=== PATIENT | female | born 1980 | race Caucasian/White ===

== ENCOUNTER 2021-12-08 17:14 | Outpatient (CLI) | payer OTHER, SELFPAY ==
--- NOTE | ~2021-12-08 | MM_ITS ---
EXAMINATION: MM screening [facility] w remberto HISTORY: Screening mammogram TECHNIQUE: Craniocaudal and mediolateral oblique 3-D tomosynthesis images were obtained and synthetic 2-D images were generated. CAD analysis was submitted and interpreted. COMPARISON: 12/03/2018 bilateral screening mammogram BREAST PARENCHYMAL COMPOSITION: There are scattered areas of fibroglandular density. FINDINGS: There is no evidence of suspicious mass, calcification, or architectural distortion to sugg est malignancy in either breast. There has been no suspicious interval change. IMPRESSION: 1. No mammographic evidence of malignancy. 2. Recommend routine screening mammography in one year. BI-RADS Category 1: Negative Reviewed, dictated and finalized at location B.
== END 2021-12-08 17:15 | disposition home or self-care (01) ==
LOC: ANHIMG 17:15
PROVIDERS: Visit Provider Obstetrics & Gynecology
DX: Z12.31 Encounter for screening mammogram for malignant neoplasm of breast (principal)
CPT/HCPCS: 77063; 77067

== ENCOUNTER 2023-05-04 14:08 | Outpatient (CLI) | payer OTHER, SELFPAY ==
--- NOTE | ~2023-05-04 | MM_ITS ---
EXAMINATION: MM screening [facility] w remberto HISTORY: Screening TECHNIQUE: Craniocaudal and mediolateral oblique 3-D tomosynthesis images were obtained and synthetic 2-D images were generated. CAD analysis was submitted and interpreted. COMPARISON: No prior mammogram is available for comparison at this institution. BREAST PARENCHYMAL COMPOSITION: The breasts are heterogeneously dense, which may obscure small masses FINDINGS: There is no evidence of suspicious mass, calcification, or architectural distortion to sugg est malignancy in either breast. There has been no suspicious interval change. IMPRESSION: 1. No mammographic evidence of malignancy. 2. Recommend routine screening mammography in one year. BI-RADS Category 1: Negative Reviewed, dictated and finalized at location A. GE DISPOSAL ENGINEER
== END 2023-05-04 14:09 | disposition home or self-care (01) ==
LOC: ANHIMG 14:30
PROVIDERS: PCP Obstetrics & Gynecology; Visit Provider Obstetrics & Gynecology
DX: Z12.31 Encounter for screening mammogram for malignant neoplasm of breast (principal)
CPT/HCPCS: 77063; 77067

== ENCOUNTER 2024-06-03 15:02 | Outpatient (CLI) | payer OTHER, SELFPAY ==
--- NOTE | ~2024-06-03 | MM_ITS ---
EXAMINATION: MM screening [facility] BI w remberto HISTORY: Screening TECHNIQUE: Craniocaudal and mediolateral oblique 3-D tomosynthesis images were obtained and synthetic 2-D images were generated. CAD analysis was submitted and interpreted. COMPARISON: Comparison to multiple prior studies sequentially, with oldest reviewed study dated 10/22. BREAST PARENCHYMAL COMPOSITION: Not dense: There are scattered areas of fibroglandular density. FINDINGS: There is no evidence of suspicious mass, calcification, or architectural distortion to sugg est malignancy in either breast. There has been no suspicious interval change. IMPRESSION: 1. No mammographic evidence of malignancy. 2. Recommend routine screening mammography in one year. BI-RADS Category 1: Negative Reviewed, dictated and finalized at location A. S APPOINTMENT COORDINATOR
--- OUTSIDE RECORDS SUMMARY | 2024-06-05 19:28 | XMS_ITS ---
Author Organization Unknown Address [address], [place] [id number] Phone Care Team Providers Care Cad Librarian Name Role Phone vinceZeynep ASHLIE Attending Unavailable TRE HOBSON Primary Unavailable Immunization Immunization Date Status Additional Notes Code Code System COVID-19, mRNA, LNP-S, PF, 3 0 mcg/0.3 mL dose 08/12/2020 Completed 208 CVX COVID-19, mRNA, LNP-S, PF, 3 0 mcg/0.3 mL dose 07/22/2020 Completed 208 CVX Social History Type Status Start Date End Date Code Code Syst em Smoking History Never smoker (Never Smoked) 558556341 SNOMED CT Sex Female Medications Medication Start Date End Date Route Frequency Dose Code Code System Medication Instructions Home Meds Macrobid 100MG Oral Capsule 01/06/2016 03/03/2024 By mouth Twice a day 1 TABLET 213967 RxNorm 1 TABLET By mouth Twice a day x7 days. Take with food! Diflucan 150MG Oral Tablet 01/06/2016 03/03/2024 By mouth Daily 1 TABLET 450995 RxNorm 1 TABLET By mouth on the first day. Repeat 1 tablet by mouth in 3 days if symptoms persist. Macrobid 100MG Oral Capsule 03/03/2024 Unknown By Mouth Every 12 hours 1 CAPSULE 856143 RxNorm 1 CAPSULE By Mouth Every 12 hours for 5 days Diflucan 150MG Oral Tablet 03/03/2024 Unknown By Mouth x1 NOW 1 TABLET 054882 RxNorm 1 TABLET By Mouth x1 NOW at start of antibiotic Pyridium 100MG Oral Tablet 03/03/2024 Unknown By Mouth Every 8 hours 1 TABLET 0869117 RxNorm 1 TABLET By Mouth Every 8 hours as needed for up to 2 days Cipro 250MG Oral Tablet 03/04/2024 Unknown By Mouth Twice a day 1 TABLET 909829 RxNorm 1 TABLET By Mouth Twice a day X 3 DAYS Assessment You had the following problems:UTI Hospital Discharge Instructions Should you have any questions prior to discharge, please contact a member of your healthcare team. If you have left the hospital and have any questions, please contact your primary care physician. Reason For Referral No Data Found Problems Problem Start Date Resolved Date Status Code Code System UTI active 05840675 SNOMED-CT Allergies and Adverse Reactions Allergy Substance Reaction Severity Start Date Concern Status Co de Code System No Known Drug Allergies Active 078985225 SNOMED-CT No Known Allergies Mild Active 421934902 SNO MED-CT Plan of Treatment No Data Found Encounters Encounter Diagnosis Start Date Code Code Sys tem History and physical examination, pre-employment 09/02 686519750 SNOMED-CT Personal Care Team Section Performer Name Performer Role Active Date Inactive Da te
--- OUTSIDE RECORDS SUMMARY | 2024-06-05 19:29 | XMS_ITS | Encounter Summary ---
Author Organization [facility] Address [facility] [place] [address] Care Team Providers Care Wet Machine Cutter Name Role Phone Unavailable Primary Care Provider Unavailabl e Encounter Details Date Type Department Care Team (Late st Contact Info) Description 12/16/2019 Lab Requisition [facility] [address] [facility] [place] [id number] Keyonna Thornton DO [address] [facility] [address] [place] [address] Social History Tobacco Use Types Packs/Day Years Used Date Smoking Tobacco: Never Assessed Sex and Gender Information Value Date Recorded Sex Assigned at Not on file Gender Identity Not on file Sexual Orientation Not on file documented as of this encounter Plan of Treatment Not on file documented as of this encounter Procedures Procedure Name Priority Date/Time Associated Diagnosis Comments DERMATOPATHOLOGY Routine 12/16/2019 12:0 0 AM CDT documented in this encounter Results * DERMATOPATHOLOGY (12/16/2019 12:00 AM CDT) Case Report Dermatopathology Report ? Case: [id number] ? Authorizing Provider: ??Keyonna Thornton DO ?? Collected: ? 12/16/2019 12:00 AM ? Ordering Location: ? [facility] ?Received: ?12/16/2019 10:59 AM ? Pathologist: ? Ilana Wagner MD ? Specimen: ?Skin, mid abdomen ? 0 3:55 PM CDT DERMATOPATHOLOGY LABORATORY Final Diagnosis Specimen A. SKIN, mid abdomen: JUNCTIONAL MELANOCYTIC NEVUS, IRRITATED (D22.5) 0 3:55 PM CDT DERMATOPATHOLOGY LABORATORY Clinical History Nevus R/O atypia 0 3:55 PM CDT DERMATOPATHOLOGY LABORATORY Gross Description Specimen A: Received is one formalin filled container labeled with the patient's name and designated mid abdomen. The specimen consists of a shave biopsy measuring 6x4x1 mm. Jar 0. 0 3:55 PM CDT DERMATOPATHOLOGY LABORATORY Microscopic Description Specimen A. SKIN, mid abdomen: There are nests of melanocytes at the dermal-epidermal junction. There is melanin pigment in the stratum corneum. 0 3:55 PM CDT DERMATOPATHOLOGY LABORATORY Disclaimer An external and internal positive and negative controls are appropriate for the histochemical, immunohistochemical and immunofluorescence stain(s) in this case (if any), except where stated explicitly. The performance characteristics of the stain(s) cited in this report were developed and its performance characteristic determined by the Dermatopathology Laboratory at [facility], directed by Dr. New Molina. These tests need not be, and therefore are not, approved by the [place] Food and Drug Administration. The tests are used for clinical purposes. Billing Codes Specimen Charges Stain Charges 09876 1 0 3:55 PM CDT DERMATOPATHOLOGY LABORATORY Embedded Images 0 3:55 PM CDT DERMATOPATHOLOGY LABORATORY Pathology/Cytolog y TISSUE SPECIMEN FROM SKIN / Unknown 12/16/2019 12/16/2019 10:59 AM CDT Keyonna Thornton DO LAB - PATHOLOGY/C YTOLOGY ORDERABLES DERMATOPATHOLOGY LABORATORY [facility] - Department of Dermatology [facility]/[address] [phone] documented in this encounter Visit Diagnoses Not on filedocumented in this encounter
--- OUTSIDE RECORDS SUMMARY | 2024-06-05 19:29 | XMS_ITS ---
Author Organization Unknown Address [address] [place] [phone] Phone Care Team Providers Care Legal Secretary Name Role Phone ALMA DELIA Strong Attending Unavailable OTHER PHYSICIAN Primary Unavailable Results URINALYSIS NON-AUTO W/O MICR O - Collect Date/Time: 03/03/2024 18:10 [facility] ID: [id number] [address] [place] [address], [id number] LOINC: Test Value Unit Reference Range Code Code System Flag TEST NAME URINALYSIS Color YELLOW Clarity HAZY Spec Grav 1.010 NORMAL: 1.001-1.035 PH 6.0 NORMAL: 5 - 6 Leuk Est ++ NORMAL: NEGATIVE A Nitrates Positive NORMAL: NEGATIVE A Protein TRACE NORMAL: NEGATIVE A Glucose NEGATIVE NORMAL: NEGATIVE Manual Clinitest NOT APPLICABLE Ketones NEGATIVE NORMAL: NEGATIVE Urobilinogen NORMAL NORMAL: 0-1 mg/dl Bilirubin NEGATIVE NORMAL: NEGATIVE Blood TRACE NORMAL: NEGATIVE A Social History Type Status Start Date End Date Code Code Syst em Smoking History Never smoker (Never Smoked) 623169906 SNOMED CT Sex Female Vital Signs Vital Sign Value Unit [place] Value [place] Unit Date/Time Recent/Initial? Code Code System Body Mass Index 29.69 kg/m2 03/03/2024 18:44 Initial 04693 -5 LOINC Systolic Blood Pressure 110 mm[Hg] 03/03/2024 18:44 Initial 8480- 6 LOINC Diastolic Blood Pressure 74 mm[Hg] 03/03/2024 18:44 Initial 8462- 4 LOINC Body Surface Area 1.84 m2 03/03/2024 18:44 Initial 3140- 1 LOINC Height 160.020 0 cm 63.00 in 03/03/2024 18:44 Initial 8302- 2 LOINC O2 Saturation 98 % 2023 18:44 Initial 83653 -5 [facility] Pulse 65.0 /min 03/03/2024 18:44 Initial 8867- 4 [facility] Temperature 36.6 Tati 97.8 F 03/03/20 18:44 Initial 8310- 5 [facility] Weight 76.02 kg 167.60 lbs 03/03/2024 18:44 Initial 90884 -7 [facility] Medications Medication Start Date End Date Route Frequency Dose Code Code System Medication Instructions Home Meds Macrobid 100MG Oral Capsule 01/06/2016 03/03/2024 By mouth Twice a day 1 TABLET 618684 RxNorm 1 TABLET By mouth Twice a day x7 days. Take with food! Diflucan 150MG Oral Tablet 01/06/2016 03/03/2024 By mouth Daily 1 TABLET 962337 RxNorm 1 TABLET By mouth on the first day. Repeat 1 tablet by mouth in 3 days if symptoms persist. Macrobid 100MG Oral Capsule 03/03/2024 Unknown By Mouth Every 12 hours 1 CAPSULE 501524 RxNorm 1 CAPSULE By Mouth Every 12 hours for 5 days Diflucan 150MG Oral Tablet 03/03/2024 Unknown By Mouth x1 NOW 1 TABLET 162931 RxNorm 1 TABLET By Mouth x1 NOW at start of antibiotic Pyridium 100MG Oral Tablet 03/03/2024 Unknown By Mouth Every 8 hours 1 TABLET 9588161 RxNorm 1 TABLET By Mouth Every 8 hours as needed for up to 2 days Cipro 250MG Oral Tablet 03/04/2024 Unknown By Mouth Twice a day 1 TABLET 552441 RxNorm 1 TABLET By Mouth Twice a day X 3 DAYS Assessment You had the following problems:UTI Diagnostics: Urinalysis with culture and sensitivity. Assessment/Plan: 1. Acute Urinary Tract Infection - Macrobid prescribed for antimicrobial therapy, advised to take as directed to completion. - Advised supportive care including increased fluids (mostly water), voiding when the urge presents, and always wiping front to back. Also advised pre/post-coital voiding. - May also utilize OTC Tylenol/Ibuprofen as needed for pain relief. - Encouraged to monitor for fever (>100.4), worsening lower abdominal/low back pain, gross hematuria, and/or nausea/vomiting and RTC for re-evaluation if these occur. 2. Acute Dysuria -Pyridium prescribed as needed. 3. History of Vaginal Yeast Infection with Antibiotic Use -Prophylactic fluconazole x 1 dose at start of antibiotic course. -Encouraged use of probiotics. Differentials: cystitis, vaginitis, urolithiasis, pyelonephritis Follow-up: PCP or CC in 2 days if not improving, otherwise follow-up with PCP as needed. ER if any symptoms become severe. * This plan has been reviewed with the patient. Questions and concerns addressed. Patient verbalized understanding of the treatment plan and the need for follow up. This examination was transcribed using the [employer] voice recognition system without a human staffing recruiter. To expedite patient care, this report has not been adjusted for typographical, or medical, or syntax by a trained medical parasitologist. Hospital Discharge Instructions Should you have any questions prior to discharge, please contact a member of your healthcare team. If you have left the hospital and have any questions, please contact your primary care physician. Reason For Referral No Data Found Problems Problem Start Date Resolved Date Status Code Code System UTI active 01957167 SNOMED-CT Allergies and Adverse Reactions Allergy Substance Reaction Severity Start Date Concern Status Co de Code System No Known Drug Allergies Active 665968076 SNOMED-CT No Known Allergies Mild Active 961370046 SNCurvo-CT Plan of Treatment Future Order Description Future Order Date Futu re Order Loinc: CULTURE URINE 03/03/2024 LOINC: 630-4 Encounters Encounter Diagnosis Start Date Code Code Sys tem Urinary tract infectious disease 03/03/2024 29995713 SNOMED-CT Personal Care Team Section Performer Name Performer Role Active Date Inactive Da te Progress Notes [facility] 03/04/2024 10:00 Date of Service: 03/03/2024 [facility] TREV Maxwell Chief Complaint: UTI History of Present Illness: Age: 43 years The patient is a 43-year-old female presenting to [facility] today for evaluation of bladder cramping and pressure x 1 day. She has not attempted relief with OTC medications. Patient denies dysuria, frequency/urgency, fever/chills, headache, dizziness, chest pain/tightness/heaviness, change in urine color/quality/odor, hematuria, vaginal discharge/odor/irritation and/or nausea/vomiting/diarrhea. The patient confirms a history of recurrent urinary tract infections approx. 1-2 times a year. She also denies any personal history of resistant urinary tract infections requiring hospitalization or IV antibiotics. She denies any concern for STDs today. Tobacco use: denies Marijuana use: denies Allergy Table Allergen Type Reaction No Known Food Allergies Food No Known Environmental Allergies Environment No Known Drug Allergies Medication Vital Signs: This Visit HtWt Date/Time BP (mm/Hg) BP Position/Site Heart Rate Resp Temp (F) SPO2% Pain Score Height (in) Weight (lbs/ozs) BMI Head Cir (cm) 03/03/2024 18:44 110/74 Sitting/Right Arm 65 97.8 Oral 98 % 63 in 167.10 29.69 PHYSICAL EXAM: GENERAL: Alert, well-appearing, in no acute distress. nontoxic. CARDIOVASCULAR: Heart regular rate and rhythm without murmurs or gallops. ABDOMEN: Soft, non-distended, non-tender. Bowel sounds were normal. No hepatosplenomegaly. No rebound or guarding. No CVA or suprapubic tenderness noted. NEUROLOGIC: Alert and oriented. Speech clear. Responding appropriately to exam. Moving extremities equally. Gait steady. SKIN: warm and dry, well perfused. Capillary refill less than 3 seconds. PSYCHIATRIC: Cooperative. Normal memory. Conversant, normal affect. Lab Results: This Visit Test Results Units Reference Range Ordered Collected Status TEST NAME URINALYSIS URINALYSIS 03/03/2024 18:10 03/03/2024 18:10 final Color YELLOW YELLOW 03/03/2024 18:10 03/03/2024 18:10 final Clarity HAZY HAZY 03/03/2024 18:10 03/03/2024 18:10 final Spec Grav 1.010 1.010 NORMAL: 1.001-1.035 03/03/2024 18:10 03/03/2024 18:10 final PH 6.0 6.0 NORMAL: 5 - 6 03/03/2024 18:10 03/03/2024 18:10 final Leuk Est ++ A ++ NORMAL: NEGATIVE 03/03/2024 18:10 03/03/2024 18:10 final Nitrates Positive A Positive NORMAL: NEGATIVE 03/03/2024 18:10 03/03/2024 18:10 final Protein TRACE A TRACE NORMAL: NEGATIVE 03/03/2024 18:10 03/03/2024 18:10 final Glucose NEGATIVE NEGATIVE NORMAL: NEGATIVE 03/03/2024 18:10 03/03/2024 18:10 final Manual Clinitest NOT APPLICABLE NOT APPLICABLE 03/03/2024 18:10 03/03/2024 18:10 final Ketones NEGATIVE NEGATIVE NORMAL: NEGATIVE 03/03/2024 18:10 03/03/2024 18:10 final Urobilinogen NORMAL NORMAL NORMAL: 0-1 mg/dl 03/03/2024 18:10 03/03/2024 18:10 final Bilirubin NEGATIVE NEGATIVE NORMAL: NEGATIVE 03/03/2024 18:10 03/03/2024 18:10 final Blood TRACE A TRACE NORMAL: NEGATIVE 03/03/2024 18:10 03/03/2024 18:10 final Diagnostics: Urinalysis with culture and sensitivity. Assessment/Plan: 1. Acute Urinary Tract Infection - Macrobid prescribed for antimicrobial therapy, advised to take as directed to completion. - Advised supportive care including increased fluids (mostly water), voiding when the urge presents, and always wiping front to back. Also advised pre/post-coital voiding. - May also utilize OTC Tylenol/Ibuprofen as needed for pain relief. - Encouraged to monitor for fever (>100.4), worsening lower abdominal/low back pain, gross hematuria, and/or nausea/vomiting and RTC for re-evaluation if these occur. 2. Acute Dysuria -Pyridium prescribed as needed. 3. History of Vaginal Yeast Infection with Antibiotic Use -Prophylactic fluconazole x 1 dose at start of antibiotic course. -Encouraged use of probiotics. Differentials: cystitis, vaginitis, urolithiasis, pyelonephritis Follow-up: PCP or CC in 2 days if not improving, otherwise follow-up with PCP as needed. ER if any symptoms become severe. * This plan has been reviewed with the patient. Questions and concerns addressed. Patient verbalized understanding of the treatment plan and the need for follow up. This examination was transcribed using the [employer] voice recognition system without a human staffing recruiter. To expedite patient care, this report has not been adjusted for typographical, or medical, or syntax by a trained medical parasitologist. Meds Given This Visit: Meds ordered and administered this visit: No Current Medications Available Discharge Med List: Discharge Medications Medication Special Instructions Start Date Prescribing MD Pyridium 100MG Oral Tablet 1 TABLET By Mouth Every 8 hours as needed for up to 2 days 03/03/2024 ALMA DELIA Strong Diflucan 150MG Oral Tablet 1 TABLET By Mouth x1 NOW at start of antibiotic 03/03/2024 ALMA DELIA Strong Macrobid 100MG Oral Capsule 1 CAPSULE By Mouth Every 12 hours for 5 days 03/03/2024 ALMA DELIA Strong
--- OUTSIDE RECORDS SUMMARY | 2024-06-05 19:29 | XMS_ITS | Clinical Summary ---
Author Organization [facility] Address [address] [place] [address] Care Team Providers Care Message Broker Developer Name Role Phone Unavailable Primary Care Provider Unavailabl e Source Comments [facility],non-owned Affiliates and Associated Physician Practices is amultiple site organization consisting of ambulatory clinics and hospital sitesin [place], [place], [place] and [place]. This disclosure is being madepursuant to the Care Everywhere program and may not contain all information available regarding this patient. Last updated 18.[facility] Social History Tobacco Use Types Packs/Day Years Used Date Smoking Tobacco: Never Assessed Sex and Gender Information Value Date Recorded Sex Assigned at Not on file Gender Identity Not on file Sexual Orientation Not on file Plan of Treatment Health Maintenance Due Date Last Done Comments COLOGUARD (AGES 45-75) - COL ON CA SCREENING 1978 COLON MONITORING 1978 COLONOSCOPY - COLON CA SCREENING 1978 CT COLONOGRAPHY - COLON CA SCREENING 1978 Colorectal Cancer Screening 1978 FIT - COLON CA SCREENING 1978 FLEX SIG - COLON CA SCREENING 1978 LIPID TESTING 1978 MAMMOGRAM 1978 PAP SMEAR 1978 HIV SCREENING 1993 HEPATITIS C SCREENING 10/27/1996 DTAP/TDAP/TD VACCINES (1 - Tdap) 1997 HEPATITIS B VACCINE (1 of 3 - 19+ 3-dose series) 1997 COVID-19 VACCINE ( - 2023-2 5 season) 2024 INFLUENZA VACCINE (#1) 2024 DEPRESSION SCREENING 05/14/2024 ZOSTER VACCINE (1 of 2) 2028 HIB VACCINE Aged Out No longer eligi ble based on patient's age to complete this topic HPV VACCINE Aged Out No longer eligi ble based on patient's age to complete this topic MENINGOCOCCAL (Group B) VACCINE Aged Out No longer eligible based on patient's age to complete this topic MENINGOCOCCAL VACCINE Aged Out No liz sotero eligible based on patient's age to complete this topic PNEUMOCOCCAL VACCINE Aged Out No long er eligible based on patient's age to complete this topic
--- OUTSIDE RECORDS SUMMARY | 2024-06-05 19:29 | XMS_ITS | Clinical Summary ---
Author Organization [facility] Address [address] [place] [address]. [place], [place] [address] [place] [id number] Care Team Providers Care Inspector Final Assembly Electrical Name Role Phone None, Provider Primary Care Provider Unavaila ble Social History Tobacco Use Types Packs/Day Years Used Date Smoking Tobacco: Never Assessed Comments Unknown Sex and Gender Information Value Date Recorded Sex Assigned at Not on file Legal Sex Female 6:38 PM CDT Gender Identity Not on file Sexual Orientation Not on file Plan of Treatment Health Maintenance Due Date Last Done Comments Cervical Cancer Screening Pa p Smear (Age 30 to 64) Every 3 Years 1978 Colorectal Cancer Screening Colonoscopy (10 Years) 1978 Annual Physical 1981 Hepatitis C 1996 DTaP, Tdap and Td Vaccines ( 1 - Tdap) 1997 Hepatitis B Vaccines (1 of 3 - 19+ 3-dose series) 1997 Cervical Cancer Screening Pa p with HPV Testing (Age 30 to 64) Every 5 Years 2008 Cervical Cancer Screening wi th HPV 2008 Mammogram Screening 2018 COVID-19 Vaccine ( - 2023-2 5 season) 2024 08/12/2020, 07/22/2020 Influenza Adult (#1) 2024 HPV Vaccines Aged Out No longer eligi ble based on patient's age to complete this topic Meningococcal Vaccine Aged Out No liz sotero eligible based on patient's age to complete this topic Pneumococcal Vaccine: Pediatrics (0 to 5 Years) and At-Risk Patients (6 to 64 Years) Aged Out No longer eligible b ased on patient's age to complete this topic RSV Immunizations Under 20 Months Aged Out No longer eligible b ased on patient's age to complete this topic Care Teams Inspector Final Assembly Electrical Relationship Specialty Start Date End Date None, Provider, PCP - General UNKNOWN PHYSICIAN SPECIALTY 02/11/24
--- OUTSIDE RECORDS SUMMARY | 2024-06-05 19:29 | XMS_ITS | Patient Health Summary ---
Author Organization [facility] Address [address] [place] [address] Care Team Providers Care Dispensing Optician Apprentice Name Role Phone Unavailable Primary Care Provider Unavailabl e Note from [facility],non-owned Affiliates and Associated Physician Practices is amultiple site organization consisting of ambulatory clinics and hospital sitesin [place], [place], [place] and [place]. This disclosure is being madepursuant to the Care Everywhere program and may not contain all information available regarding this patient. Last updated 18.[facility] [employer] Social History Tobacco Use Types Packs/Day Years Used Date Smoking Tobacco: Never Assessed Sex and Gender Information Value Date Recorded Sex Assigned at Not on file Gender Identity Not on file Sexual Orientation Not on file Procedures * DERMATOPATHOLOGY(Performed 12/16/2019) Results * DERMATOPATHOLOGY (12/16/2019 12:00 AM CDT) Case Report Dermatopathology Report ? Case: [id number] ? Authorizing Provider: ??Keyonna Thornton, ?? Collected: ? 12/16/2019 12:00 AM ? Ordering Location: ? [facility] ?Received: ?12/16/2019 10:59 AM [...] characteristic determined by the Dermatopathology Laboratory at [facility], directed by Dr. [place]. These tests need not be, and therefore are not, approved by the [place] Food and Drug Administration. The tests are used for clinical purposes. Billing Codes Specimen Charges Stain Charges 48236 1 0 3:55 PM CDT DERMATOPATHOLOGY LABORATORY Embedded Images 0 3:55 PM CDT DERMATOPATHOLOGY LABORATORY Pathology/Cytolog y TISSUE SPECIMEN FROM SKIN / Unknown 12/16/2019 12/16/2019 10:59 AM CDT Keyonna Thornton DO LAB - PATHOLOGY/C YTOLOGY ORDERABLES DERMATOPATHOLOGY LABORATORY [facility] - Department of Dermatology [facility]/[address] [phone]
--- OUTSIDE RECORDS SUMMARY | 2024-06-05 19:29 | XMS_ITS ---
Author Organization Unknown Address [address], [place] [id number] Phone Care Team Providers Care Banking Center Manager Name Role Phone vinceMaryJASMIN HOBSON Primary Unavailable Immunization Immunization Date Status Additional Notes Code Code System COVID-19, mRNA, LNP-S, PF, 3 0 mcg/0.3 mL dose 08/12/2020 Completed 208 CVX COVID-19, mRNA, LNP-S, PF, 3 0 mcg/0.3 mL dose 07/22/2020 Completed 208 CVX Social History Type Status Start Date End Date Code Code Syst em Smoking History Never smoker (Never Smoked) 436925502 SNOMED CT Sex Female Medications Medication Start Date End Date Route Frequency Dose Code Code System Medication Instructions Home Meds Macrobid 100MG Oral Capsule 03/03/2024 Unknown By Mouth Every 12 hours 1 CAPSULE 226457 RxNorm 1 CAPSULE By Mouth Every 12 hours for 5 days Diflucan 150MG Oral Tablet 03/03/2024 Unknown By Mouth x1 NOW 1 TABLET RxNorm 1 TABLET By Mouth x1 NOW at start of antibiotic Pyridium 100MG Oral Tablet 03/03/2024 Unknown By Mouth Every 8 hours 1 TABLET 3163738 RxNorm 1 TABLET By Mouth Every 8 hours as needed for up to 2 days Cipro 250MG Oral Tablet 03/04/2024 Unknown By Mouth Twice a day 1 TABLET 901687 RxNorm 1 TABLET By Mouth Twice a [...] Date Status Code Code System UTI active 01904849 SNOMED-CT Allergies and Adverse Reactions Allergy Substance Reaction Severity Start Date Concern Status Co de Code System No Known Drug Allergies Active 586272708 SNOMED-CT No Known Allergies Mild Active 858037778 SNO MED-CT Plan of Treatment No Data Found Encounters Encounter Diagnosis Start Date Code Code Sys tem Dysuria 03/03/2024 40650716 SNOMED-CT Personal Care Team Section Performer Name Performer Role Active Date Inactive Da jarrod
--- OUTSIDE RECORDS SUMMARY | 2024-06-05 19:29 | XMS_ITS | Referral Summary ---
Author Organization [facility] Address [facility] [place] [address] Care Team Providers Care Draw Furnace Tender Name Role Phone Unavailable Primary Care Provider Unavailabl e Source Comments [facility],non-owned Affiliates and Associated Physician Practices is amultiple site organization consisting of ambulatory clinics and hospital sitesin [place], [place], [place] and [place]. This disclosure is being madepursuant to the Care Everywhere program and may not contain all information available regarding this patient. Last updated 18.[facility] [employer] Social History Tobacco Use Types Packs/Day Years Used Date Smoking Tobacco: Never Assessed Sex and Gender Information Value Date Recorded Sex Assigned at Not on file Gender Identity Not on file Sexual Orientation Not on file Plan of Treatment Not on file
--- OUTSIDE RECORDS SUMMARY | 2024-06-05 19:29 | XMS_ITS | Referral Summary ---
Author Organization [facility] [address] [place] [address] [place] [id number] Care Team Providers Care Key Filer Name Role Phone David Zhang MD Primary Care Provider [phone] Allergies Active Allergy Reactions Criticality Noted Date Comments Latex Hives Medium 11/08/2021 Medications valACYclovir (VALTREX) 500 mg tablet Take 500 mg by mouth daily Active estradiol (ESTRACE) 2 mg tablet TK 1 T PO QD. 0 10/05/2018 Active amitriptyline (ELAVIL) 50 mg tablet 10/19/2021 Active fluticasone propionate (FLONASE) 50 mcg/actuation nasal spray 10/03/2021 Active Active Problems Problem Noted Date Diagnosed Date Right ear pain 11/08/2021 Assessment & Plan (11/08/2021 2:39 PM CDT): She has ear pain with no obvious signs of an ear infection. I do not find any evidence of an ear infection or inflammation. I talked with the patient about possible reasons for ear pain that could be coming from another source. There is some potential for TMJ disorder to cause this. Also some potential for ear pain due to cervical strain or shoulder problems. She does state that she thinks she grinds her teeth. I think it might be helpful for see her dentist. Also could see a physical therapist they really do not find anything. TMJ (temporomandibular joint syndrome) Assessment & Plan (11/08/2021 7:58 PM CDT): I recommended avoiding chewing gum and trying a soft diet for a while. I also talked with her about taking a steroid but she feels that things have gotten better. She has been taking ibuprofen that seems to be helpful. She declined steroids. At this point she will see me as needed for this. 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 Gender Identity Not on file Sexual Orientation Not on file Last Filed Vital Signs Vital Sign Reading Time Taken Comments Blood Pressure 108/70 01/01/2019 4:39 PM CDT Pulse 76 01/01/2019 4:39 PM CDT Temperature 36.6 ??C (97.9 ??F) 01/01/2019 4:39 PM CD T Respiratory Rate 18 11/08/2021 2:08 PM CDT Oxygen Saturation 99% 01/01/2019 4:39 PM CDT Inhaled Oxygen Concentration - - Weight 77.1 kg (170 lb) 11/08/2021 2:08 PM CDT Height 160 cm (5' 3 ) 11/08/2021 2:08 PM CDT Body Mass Index 30.11 11/08/2021 2:08 PM CDT Plan of Treatment Not on file Insurance AETNA SIG [id number] AETNA SIG [id number] CIGNA OPEN ACCESS [facility] OTHER CIGNA OPEN ACCESS Care Teams Key Filer Relationship Specialty Start Date End Date David Zhang MD [address] [place] [address] PCP - General Family Medicine 10/27/21
--- OUTSIDE RECORDS SUMMARY | 2024-06-05 19:29 | XMS_ITS | Clinical Summary ---
Author Organization [facility] [address] [place] [address] [place] [id number] Care Team Providers Care Punch Hand Name Role Phone David Zhang MD Primary Care Provider [phone] Allergies Active Allergy Reactions Criticality Noted Date [...] will see me as needed for this. Surgical History Surgery Date Site/Laterality Comments HYSTERECTOMY GALLBLADDER SURGERY ENDOMETRIAL ABLATION TONSILLECTOMY TUBAL LIGATION CARPAL TUNNEL RELEASE Medical History Medical History Date Comments Allergic rhinitis Ear problems Family History Medical History Relation Name Comments Diabetes Maternal Grandmother Heart disease Maternal Grandmother Cancer Mother Relation Name Status Comments Maternal Grandmother Mother Social History Tobacco Use Types Packs/Day Years Used Date Smoking Tobacco: Former Smokeless Tobacco: Never Personal Safety Answer Date Recorded Getting School Help Needed Not on file 07/27 Comments Unknown Sex and Gender Information Value Date Recorded Sex Assigned at Not on file 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 Gender Identity Not on file Sexual Orientation Not on file Obstetrics History Last Filed Vital Signs Vital Sign Reading [...] 11/08/2021 2:08 PM CDT Plan of Treatment Health Maintenance Due Date Last Done Comments Breast Cancer Screening-Mammogram 1978 Colon Cancer Screening-Colonoscopy 1978 Depression Screening 1978 Hepatitis C Screening 1978 DTaP/Tdap/Td Vaccine (1 - Tdap) 1989 Hepatitis B Screening 1996 Regular Well Visit/Exam 18-64 1996 Covid-19 Vaccine (2023-2 5 season) 2024 08/12/2020, 07/22/2020 Influenza Vaccine (#1) 2024 HPV Vaccines Aged Out No longer eligi ble based on patient's age to complete this topic Pneumococcal vaccine <65 Aged Out No longer eligible based on patient's age to complete this topic Insurance AETNA SIG [id number] AETNA SIG [id number] CIGNA OPEN ACCESS [facility] OTHER [facility] OPEN ACCESS Care Teams Punch Hand Relationship Specialty Start Date End Date David Zhang MD [address] [place] [address] PCP - General Family Medicine 10/27/21
== END 2024-06-03 15:03 | disposition home or self-care (01) ==
PROVIDERS: PCP Obstetrics & Gynecology; Visit Provider Obstetrics & Gynecology
DX: Z12.31 Encounter for screening mammogram for malignant neoplasm of breast (principal)
CPT/HCPCS: 77063; 77067